=== PATIENT | male | born 1965 | race American Indian/Alaskan Native ===

== ENCOUNTER 2016-06-04 23:54 | Inpatient (IN) | payer MEDICARE, MEDICAID ==
[2016-06-04 23:54] VITALS: BMI 44.8
[2016-06-05 00:42] LABS: BASO # 0.1 K/uL (0.0-0.2); EOS # 1.5 K/uL (0.0-0.7); EOS % 14.8 % (0.0-4.0); HEMATOCRIT 39.1 % (35.0-51.0); LYMPH # 2.8 K/uL (1.0-4.3); LYMPH % 27.9 % (20.0-40.0); MEAN CELL VOLUME 93.7 fL (80.0-94.0); MEAN CORPUSCULAR HEMOGLOBIN 31.5 pg (27.0-31.0); MEAN CORPUSCULAR HGB CONC 33.6 g/dL (33.0-37.0); MEAN PLATELET VOLUME 8.2 fL (7.2-11.7); MONO # 0.9 K/uL (0.0-0.8); MONO % 8.8 % (0.0-10.0); NRBC % 0.1 % (0.0-2.0); RED CELL DISTRIBUTION WIDTH 12.9 % (11.5-14.5); WHITE BLOOD COUNT 9.9 K/uL (4.8-10.8)
[2016-06-05 00:53] LABS: CHLORIDE 98 mmol/L (98-107); POTASSIUM 3.5 mmol/L (3.6-5.2); SODIUM 139 mmol/L (132-148)
[2016-06-05 00:55] LABS: BILIRUBIN,TOTAL 0.4 mg/dL (0.2-1.3); CARBON DIOXIDE 29 mmol/L (22-30); GFR AFRICAN-AMERICAN > 60
[2016-06-05 00:56] LABS: ALKALINE PHOSPHATASE 52 U/L (38-126); ALT/SGPT 27 U/L (21-72); AST/SGOT 17 U/L (17-59); BLOOD UREA NITROGEN 15 mg/dL (9-20); CALCIUM 8.7 mg/dl (8.6-10.4); GLUCOSE,RANDOM 85 mg/dL (75-110); RBC URINE 1 /hpf (0-3); TOTAL PROTEIN 7.6 g/dL (6.3-8.3); URINE BILIRUBIN NEGATIVE (NEGATIVE); URINE BLOOD NEGATIVE (NEGATIVE); URINE COLOR Yellow (YELLOW); URINE GLUCOSE (UA) NORMAL (Normal); URINE KETONE NEGATIVE (NEGATIVE); URINE LEUKOCYTE ESTERASE NEG Leu/uL (Negative); URINE PROTEIN NEGATIVE (NEGATIVE); URINE UROBILINOGEN NORMAL mg/dL (0.2-1.0); WBC URINE 1 /hpf (0-5)
[2016-06-05 00:57] LABS: ALCOHOL SERUM < 10 mg/dl (0-10)
--- NOTE | 2016-06-05 01:02 | C.PDOC ---
History Of Present Illness 51 year old patient, with a history of hypertension and depression, presents to the ED complaining of suicidal ideation and depression for the past few days. Patient states he has a plan to jump in front of a car. Patient denies fever, shortness of breath, chest pain, vomiting, or any other physical complaints at this time. Time Seen by Provider: 06/05/16 01:00 Chief Complaint (Nursing): Psychiatric Evaluation History Per: Patient History/Exam Limitations: no limitations Onset/Duration Of Symptoms: Days (few days) Current Symptoms Are (Timing): Still Present Suicide/Self Injury Attempted (Context): Other Modifying Factor(s): None Severity: None Pain Scale Rating Of: 0 Associated Symptoms: Depression, Suicidal Plan Recent travel outside of the [place]: No Past Medical History Reviewed: Historical Data, Nursing Documentation, Vital Signs Vital Signs: Last Vital Signs Temp 97.9 F 06/05/16 00:06 Pulse 94 H 06/05/16 00:06 Resp 20 06/05/16 00:06 BP 154/73 H 06/05/16 00:06 Pulse Ox 95 06/05/16 01:03 - Medical History PMH: Bipolar Disorder, Depression, HTN - [facility] Procedures INJECT/INFUSE NEC (02/09/13) Family History: States: Unknown Family Hx - Social History Hx Alcohol Use: No Hx Substance Use: No - Immunization History Hx Tetanus Toxoid Vaccination: No Hx Influenza Vaccination: No Hx Pneumococcal Vaccination: No Review Of Systems Except As Marked, All Systems Reviewed And Found Negative. Constitutional: Negative for: Fever Cardiovascular: Negative for: Chest Pain Respiratory: Negative for: Shortness of Breath Gastrointestinal: Negative for: Vomiting Psych: Positive for: Depression, Suicidal ideation Physical Exam - Physical Exam Appears: Non-toxic, Other (mild distress) Skin: Warm, Dry Head: Atraumatic, Normacephalic Neck: Normal ROM, Supple Chest: Symmetrical Cardiovascular: Rhythm Regular Gastrointestinal/Abdominal: Soft, No Tenderness Back: Normal Inspection Extremity: Normal ROM Neurological/Psych: Oriented x3 ED Course And Treatment - Laboratory Results Result Diagrams: 06/05/16 00:37 06/05/16 00:37 O2 Sat by Pulse Oximetry: 95 Progress Note: Plan: -Labs. -Reassess and disposition Disposition Discussed With : Lori Bynum Doctor Will See Patient In The: Hospital Counseled Patient/Family Regarding: Diagnosis - Disposition Disposition: HOSPITALIZED Disposition Time: 03:19 Condition: STABLE - POA Present On Arrival: None - Clinical Impression Clinical Impression: Major depressive disorder, recurrent - Scribe Statement The provider has reviewed the documentation as recorded by the Scribe Alivia Live Provider Attestation: All medical record entries made by the Scribe were at my direction and personally dictated by me. I have reviewed the chart and agree that the record accurately reflects my personal performance of the history, physical exam, medical decision making, and the department course for this patient. I have also personally directed, reviewed, and agree with the discharge instructions and disposition.
[2016-06-05 04:04] VITALS: O2SAT 96
--- NOTE | 2016-06-05 11:18 | PCM.PSYCH ---
Initial Psychiatric Evaluation - Initial Psychiatric Evaluation Type of Admission: Voluntary Legal Status: Capacity Chief Complaint (in patient's own words): I was feeling very irritable and agitated History of Present Illness and Precipitating Events: Patient is a 51 years old HM, who is currently unemployed and homeless, with a long history of bipolar disorder, and alcohol and cocaine dependence came to the ED with depressed and agitated mood and suicidal ideation with plan to jump in traffic. As per the patient he stopped taking medications for more than 1 month ago, after the last discharge from hospital. As per the patient he became increasingly depressed and irritable. He started having racing thoughts and flight of ideas, and developed suicidal ideation, so came to the hospital to get help. Patient reports of depressed, irritable and agitated mood, reports poor sleep and poor appetite. Pt also reports at times racing of thoughts, and flight of ideas. He also reports visual hallucinations and at times persecutory delusions. However he denies any auditory hallucinations. He denies any drinking or any substance abuse. Current Medications: Active Medications Generic Name Dose Route Start Last Admin Trade Name Freq PRN Reason Stop Dose Admin Apixaban 5 mg 06/05/16 10:00 Eliquis PO DAILY ESTELITA Buspirone HCl 10 mg 06/05/16 10:00 Buspar PO BID ESTELITA Citalopram Hydrobromide 20 mg 06/05/16 10:00 Celexa PO DAILY ESTELITA Hydroxyzine HCl 50 mg 06/05/16 03:55 Atarax PO Q6 PRN Anxiety Ibuprofen 400 mg 06/05/16 03:55 Motrin Tab PO Q6 PRN Pain, Mild (1-3) Influenza Virus Vaccine 45 mcg 06/07/16 10:00 Afluria IM 06/07/16 10:01 .ONCE ONE Pneumococcal Polyvalent Vaccine 0.5 ml 06/06/16 10:15 Pneumovax 23 Vaccine IM 06/06/16 10:16 .ONCE ONE Trazodone HCl 100 mg 06/05/16 03:55 Desyrel PO HS PRN Insomnia Past Psychiatric History - Past Psychiatric History Previous Treatment History: None Pertinent Medical Hx (Current Medical&Sleep Prob, Allergies): Allergies Allergy/AdvReac Type Severity Reaction Status Date / Time No Known Allergies Allergy Verified 06/05/16 00:12 Citalopram Hydrobromide [Celexa] 20 mg PO DAILY 05/05/16 busPIRone [Buspar] 10 mg PO BID 05/05/16 traZODone 150 mg PO HS PRN 05/05/16 Apixaban [Eliquis] 5 mg PO DAILY 06/02/16 Naproxen [Naprosyn Tab] 375 mg PO BID #12 tab 06/02/16 Review of Systems - Review of Systems All systems: reviewed and no additional remarkable complaints except - Psychiatric Psychiatric: Anxiety, Behavioral Changes, Irritability, Mood Swings, Paranoia, Suicidal Ideation Mental Status Examination - Personal Presentation Personal Presentation: Looks stated age - Affect Affect: Blunted - Motor Activity Motor Activity: Psychomotor Agitation - Reliability in Providing Information Reliability in Providing Information: Poor, due to alteration in thoughts, Poor , due to altered mood - Speech Speech: Disorganized - Mood Mood: Anxious - Formal Thought Process Formal Thought Process: Delusions, Paranoia, Loosening of associations - Obsessions/Compulsions Obsessions: No Compulsions: No - Cognitive Functions Orientation: Person, Place, Situation, Time Sensorium: Alert Attention/Concentration: Attentive Abstract Thinking: [place] Estimate of Intelligence: Below average Judgement: Imparied, as evidence by: Poor judgement, Imparied, as evidence by: Lack of insight into illness - Risk Risk: Suicidal, Diminished functioning - Strength & Assets Inventory Strength & Assets Inventory: Cooperative DSM 5 DX - DSM 5 DSM 5 Diagnosis: Bipolar disorder mixed severe with psychotic features - Recommended/Plan of Treatment Treatment Recommendations and Plan of Treatment: Bipolar disorder mixed severe with psychotic features CBT Psychoeducation Supportive therapy, individual therapy Celexa 20 mg PO daily Trazodone 100 mg PO Q HS Buspar 10 mg by mouth twice a day Haldol 5 mg by mouth daily at bedtime DVT Continue prescribed medications Monitor signs symptoms HTN Continue prescribed medications Monitor signs symptoms - Smoking Cessation Smoking Cessation Initiated: No
[2016-06-05 20:29] LABS: INR 1.1
[2016-06-06] MEDS ORDERED: Aluminum Hydroxide/Magnesium Hydroxide Susp (30 mL) PO PRN (01:03)
[2016-06-06] MEDS ORDERED: Pneumococcal 23-Valent Vaccine IM ONE (10:15)
[2016-06-06] MEDS ORDERED: Influenza Virus Vaccine 45 mcg/0.5 ml Syr IM ONE (12:15)
--- NOTE | 2016-06-06 15:35 | PCM.PYCHPN ---
Psychiatric Progress Note - Psychiatric Progress Note Patient seen today, length of contact: 17 min Patient Chief Complaint: I am feeling little better Problems Identified/Issues Discussed: Patient seen and evaluated, chart reviewed and discussed with the nurse. Patient reports irritability and agitation. He still reports racing of thoughts and flight of ideas and anxiety. He remained isolated and withdrawn. He reports of visual hallucinations and persecutory delusions. However he remained calm and cooperative. He is taking medication and denied any side effects. Supportive therapy and psychoeducation were given Medication Change: Yes (start Depakote) Medical Record Reviewed: Yes Mental Status Examination - Cognitive Function Orientation: Person, Place, Situation, Time Memory: Intact Attention: WNL Concentration: Poor Association: WNL Fund of Knowledge: Poor - Mood Mood: Anxious - Affect Affect: Blunted - Speech Speech: Soft - Formal Thought Process Formal Thought Process: Delusions, Loosening of associations - Suicidal Ideation Suicidal Ideation: No - Homicidal Ideation Homicidal Ideation: No Goal/Treatment Plan - Goal/Treatment Plan Need for Continued Stay: Discharge may exacerbated symptoms, Severe functional impairment Progress Toward Problem(s) and Goals/Treatment Plan: Bipolar disorder mixed severe with psychotic features CBT Psychoeducation Supportive therapy, individual therapy Celexa 20 mg PO daily Trazodone 100 mg PO Q HS Buspar 10 mg by mouth twice a day Haldol 5 mg by mouth daily at bedtime DVT Continue prescribed medications Monitor signs symptoms HTN Continue prescribed medications Monitor signs symptoms - Smoking Cessation Smoking Cessation Initiated: No
--- NOTE | 2016-06-07 15:32 | PCM.PYCHPN ---
Psychiatric Progress Note - Psychiatric Progress Note Patient seen today, length of contact: 17 min Patient Chief Complaint: I am feeling little better Problems Identified/Issues Discussed: Patient seen and evaluated, chart reviewed and discussed with the nurse. Patient reports a bit improvement in his irritability and agitation. He remained isolated and withdrawn, and remained confined to his room. He reports a bit improvement in his racing of thoughts and flight of ideas and anxiety. He reports of visual hallucinations and persecutory delusions. However he remained calm and cooperative. He is taking medication and denied any side effects. Supportive therapy and psychoeducation were given Medication Change: Yes (start Neurontin) Medical Record Reviewed: Yes Mental Status Examination - Cognitive Function Orientation: Person, Place, Situation, Time Memory: Intact Attention: WNL Concentration: Poor Association: WNL Fund of Knowledge: Poor - Mood Mood: Anxious - Affect Affect: Blunted - Speech Speech: Soft - Formal Thought Process Formal Thought Process: Delusions, Loosening of associations - Suicidal Ideation Suicidal Ideation: No - Homicidal Ideation Homicidal Ideation: No Goal/Treatment Plan - Goal/Treatment Plan Need for Continued Stay: Discharge may exacerbated symptoms, Severe functional impairment Progress Toward Problem(s) and Goals/Treatment Plan: Bipolar disorder mixed severe with psychotic features CBT Psychoeducation Supportive therapy, individual therapy Celexa 20 mg PO daily Trazodone 100 mg PO Q HS Buspar 10 mg by mouth twice a day Haldol 5 mg by mouth daily at bedtime Neurontin 300 mg by mouth twice a day DVT Continue prescribed medications Monitor signs symptoms HTN Continue prescribed medications Monitor signs symptoms - Smoking Cessation Smoking Cessation Initiated: No
--- NOTE | 2016-06-08 18:09 | PCM.PYCHPN ---
Psychiatric Progress Note - Psychiatric Progress Note Patient seen today, length of contact: 16 min Patient Chief Complaint: I am feeling little better Problems Identified/Issues Discussed: Patient seen and evaluated, chart reviewed and discussed with the nurse. As per the staff, pt is improving and remained calm and cooperative. Patient reports improvement in his mood but remained isolated, withdrawn, agitated and guarded. He reports a bit improvement in his racing of thoughts and flight of ideas and anxiety. He is taking medication and denied any side effects. Supportive therapy and psychoeducation were given Medication Change: Yes (increase Neurontin) Medical Record Reviewed: Yes Mental Status Examination - Cognitive Function Orientation: Person, Place, Situation, Time Memory: Intact Attention: WNL Concentration: Poor Association: WNL Fund of Knowledge: Poor - Mood Mood: Anxious - Affect Affect: Blunted - Speech Speech: Soft - Formal Thought Process Formal Thought Process: Delusions, Flight of ideas - Suicidal Ideation Suicidal Ideation: No - Homicidal Ideation Homicidal Ideation: No Goal/Treatment Plan - Goal/Treatment Plan Need for Continued Stay: Discharge may exacerbated symptoms, Severe functional impairment Progress Toward Problem(s) and Goals/Treatment Plan: Bipolar disorder mixed severe with psychotic features CBT Psychoeducation Supportive therapy, individual therapy Celexa 20 mg PO daily Trazodone 100 mg PO Q HS Buspar 10 mg by mouth twice a day Haldol 5 mg by mouth daily at bedtime Increase Neurontin 300 mg by mouth TID DVT Continue prescribed medications Monitor signs symptoms HTN Continue prescribed medications Monitor signs symptoms - Smoking Cessation Smoking Cessation Initiated: No
--- NOTE | 2016-06-09 14:10 | PCM.PYCHPN ---
Psychiatric Progress Note - Psychiatric Progress Note Patient seen today, length of contact: 15 minutes Patient Chief Complaint: I'm feeling much better Problems Identified/Issues Discussed: Patient seen. Chart reviewed. Case discussed with the staff. Issues related to illness and treatment were discussed with the patient. Patient reported compliant with treatment with no adverse affects. Tolerating treatment very well. Reported feeling much better. Patient was found socializing with other patients. At the time of evaluation patient was awake alert oriented 3, had no delusions, no auditory or visual hallucinations, no suicidal ideations or homicidal ideations. Medical Problems: Hypertension DVT Diagnostic Results: Reviewed DSM 5 Symptoms Update: Improving with treatment Medication Change: No Medical Record Reviewed: Yes Mental Status Examination - Cognitive Function Orientation: Person, Place, Situation, Time Memory: Intact Attention: WNL Concentration: WNL Association: WNL Fund of Knowledge: [facility] Decription of patient's judgement and insights: Fair - Mood Mood: Neutral - Affect Affect: Other (Appropriate) - Speech Speech: Soft - Formal Thought Process Formal Thought Process: No Impairment - Suicidal Ideation Suicidal Ideation: No - Homicidal Ideation Homicidal Ideation: No Goal/Treatment Plan - Goal/Treatment Plan Need for Continued Stay: Remain at risks for inpatient hospitalization, Discharge may exacerbated symptoms, Severe functional impairment Progress Toward Problem(s) and Goals/Treatment Plan: Improving with treatment Patient education Supportive therapy Continue treatment as before We will go [facility]-up care after discharge from the hospital Estimated Date of D/C: 06/13/16 - Smoking Cessation Smoking Cessation Initiated: No
--- NOTE | 2016-06-10 16:27 | PCM.PYCHPN ---
Psychiatric Progress Note - Psychiatric Progress Note Patient seen today, length of contact: 15 minutes Patient Chief Complaint: I'm feeling much better Problems Identified/Issues Discussed: Patient seen. Chart reviewed. Case discussed with the staff. Issues related to illness and treatment were discussed with the patient. Patient reported compliant with treatment with no adverse affects. Tolerating treatment very well. Reported feeling much better. Patient was found socializing with other patients. At the time of evaluation patient was awake alert oriented 3, had no delusions, no auditory or visual hallucinations, no suicidal ideations or homicidal ideations. Medical Problems: Hypertension DVT Diagnostic Results: Reviewed DSM 5 Symptoms Update: Improving with treatment Medication Change: No Medical Record Reviewed: Yes Mental Status Examination - Cognitive Function Orientation: Person, Place, Situation, Time Memory: Intact Attention: WNL Concentration: WNL Association: WNL Fund of Knowledge: [facility] Decription of patient's judgement and insights: Fair - Mood Mood: Neutral - Affect Affect: Other (Appropriate) - Speech Speech: Soft - Formal Thought Process Formal Thought Process: No Impairment Psychotic Thoughts and Behaviors: None - Suicidal Ideation Suicidal Ideation: No - Homicidal Ideation Homicidal Ideation: No Goal/Treatment Plan - Goal/Treatment Plan Need for Continued Stay: Remain at risks for inpatient hospitalization, Discharge may exacerbated symptoms, Severe functional impairment Progress Toward Problem(s) and Goals/Treatment Plan: Improving with treatment Patient education Supportive therapy Continue treatment as before We will go [facility] for follow-up care after discharge from the hospital Estimated Date of D/C: 06/13/16 - Smoking Cessation Smoking Cessation Initiated: No
--- NOTE | 2016-06-11 09:52 | PCM.PYCHDC ---
Mental Status Examination - Mental Status Examination Orientation: Person, Place, Situation, Time Memory: Intact Mood: Neutral Affect: Constricted Speech: Soft Attention: WNL Concentration: WNL Association: WNL Fund of Knowledge: WNL Formal Thought Process: No Impairment Description of patient's judgement and insight: GOOD, FAIR Psychotic Thoughts and Behaviors: DENIES ANY AVH Suicidal Ideation: No Current Homicidal Ideation?: No Discharge Summary - Discharge Note Reason for Hospitalization: Patient is a 51 years old HM, who is currently unemployed and homeless, with a long history of bipolar disorder, and alcohol and cocaine dependence came to the ED with depressed and agitated mood and suicidal ideation with plan to jump in traffic. As per the patient he stopped taking medications for more than 1 month ago, after the last discharge from hospital. As per the patient he became increasingly depressed and irritable. He started having racing thoughts and flight of ideas, and developed suicidal ideation, so came to the hospital to get help. Patient reports of depressed, irritable and agitated mood, reports poor sleep and poor appetite. Pt also reports at times racing of thoughts, and flight of ideas. He also reports visual hallucinations and at times persecutory delusions. However he denies any auditory hallucinations. He denies any drinking or any substance abuse. Consultations:: List each consultation separately and include: 1. Reason for request. 2. Findings. 3. Follow-up Summary of Hospital Course include:: 1. Description of specific treatment plan utilized for patients during their course of treatmen. 2. Summarize the time- course for resolution of acute symptoms and/or regressed behaviors. 3. Describe issues identified and worked on during hospitalization. 4. Describe medication utilized. 5. Describe medical problems identified and treated. 6. Reassessment of suicide risk Summary of Hospital Course: During the course of his stay, patient (pt) started progressively improving and he no longer remained irritable, depressed, and suicidal. His mood was improved and he started attending groups and meetings and started socializing. Patient denied any feelings of hopelessness, helplessness, and worthlessness, denied any problem with the sleep or appetite, denied suicidal ideation or homicidal ideation. Pt denied any auditory or visual hallucinations. Some changes were made in his current medications and patient was discharged on following medications. He tolerated these medications very well and denied any side effects. - Final Diagnosis (DSM 5) Condition upon Discharge: STABLE DSM 5: Bipolar disorder mixed severe with psychotic features Disposition: HOME/ ROUTINE Follow-up Treatment Plan: Education: Pt was educated and counseled about the risks and benefits of taking and not taking medications. Pt was educated and counseled about the risks of drinking and abusing drugs. Pt was educated and counseled to go to the ER or call 911 if pt develop suicidal ideation or homicidal ideation, worsening of symptoms or severe side effects of the meds. Prescriptions/Medication Reconciliation: traZODone [Desyrel] 100 mg PO HS PRN #30 tab PRN Reason: Insomnia Gabapentin [Neurontin] 300 mg PO BID #60 cap Citalopram [celEXA] 20 mg PO DAILY #30 tab - Smoking Cessation Smoking Cessation Medication prescribed: No - Antipsychotic Medications Pt discharged on 2 or more routine antipsychotic medications: No
[2016-06-11 09:55] VITALS: BP 127/79; PULSE 98; RESP 18; TEMP 98.6
== END 2016-06-11 13:05 | disposition home or self-care (01) | DRG 885 ==
LOC: C.ER 23:54 → C.5E 06-05 03:20
PROVIDERS: ADMIT Psychiatry & Neurology Psychiatry; ATTEND Psychiatry & Neurology Psychiatry
PROC: GZ3ZZZZ Medication Management (ICD-10-PCS; principal; 2016-06-05)
PROC: GZ56ZZZ Individual Psychotherapy, Supportive (ICD-10-PCS; 2016-06-05)
DX: F31.64 Bipolar disorder, current episode mixed, severe, with psychotic features (principal); R45.851 Suicidal ideations; F14.20 Cocaine dependence, uncomplicated; I82.509 Chronic embolism and thrombosis of unspecified deep veins of unspecified lower extremity; F10.20 Alcohol dependence, uncomplicated; I10 Essential (primary) hypertension; Z23 Encounter for immunization; Z87.891 Personal history of nicotine dependence; Z59.0 Homelessness; Z91.14 Patient's other noncompliance with medication regimen

== ENCOUNTER 2016-08-31 18:46 | Emergency (ER) | payer MEDICAID, MEDICARE ==
[2016-08-31 18:47] VITALS: BMI 44.8
--- NOTE | 2016-08-31 19:49 | C.PDOC ---
History Of Present Illness Patient presents to the ED with complaints of depression and suicidal ideations. Patient notes he has a plan but denies any physical complaints at this time. Time Seen by Provider: 08/31/16 19:48 Chief Complaint (Nursing): Psychiatric Evaluation History Per: Patient History/Exam Limitations: no limitations Onset/Duration Of Symptoms: Unknown Current Symptoms Are (Timing): Still Present Suicide/Self Injury Attempted (Context): None Modifying Factor(s): None Associated Symptoms: Depression, Suicidal Thoughts, Suicidal Plan Recent travel outside of the [place]: No Past Medical History Reviewed: Historical Data, Nursing Documentation, Vital Signs Vital Signs: Last Vital Signs Temp 98.0 F 09/01/16 01:34 Pulse 90 09/01/16 01:34 Resp 18 09/01/16 03:00 BP 133/86 09/01/16 01:34 Pulse Ox 99 09/01/16 01:34 - Medical History PMH: Bipolar Disorder, Depression, HTN - [facility] Procedures INDIVIDUAL PSYCHOTHERAPY, SUPPORTIVE (06/05/16) INJECT/INFUSE NEC (02/09/13) MEDICATION MANAGEMENT (06/05/16) Family History: States: Unknown Family Hx - Social History Hx Alcohol Use: No Hx Substance Use: No - Immunization History Hx Tetanus Toxoid Vaccination: No Hx Influenza Vaccination: Yes Hx Pneumococcal Vaccination: No Review Of Systems Constitutional: Negative for: Fever, Chills, Sweats Cardiovascular: Negative for: Chest Pain, Palpitations Respiratory: Negative for: Cough, Shortness of Breath Gastrointestinal: Negative for: Nausea, Vomiting, Abdominal Pain, Diarrhea Psych: Positive for: Depression, Suicidal ideation Physical Exam - Physical Exam Appears: Non-toxic, No Acute Distress Skin: Warm, Dry Head: Atraumatic Oral Mucosa: Moist Neck: Supple Chest: Symmetrical, No Deformity Cardiovascular: Rhythm Regular Respiratory: No Rales, No Rhonchi, No Stridor, No Wheezing Gastrointestinal/Abdominal: Soft, No Tenderness, No Distention, No Guarding, No Rebound Extremity: Normal ROM, No Tenderness Neurological/Psych: Oriented x3 ED Course And Treatment - Laboratory Results Result Diagrams: 08/31/16 20:07 08/31/16 20:07 ECG: Interpreted By Me, Viewed By Me ECG Rhythm: Sinus Rhythm (89), Nonspecific Changes O2 Sat by Pulse Oximetry: 95 (room air ) Pulse Ox Interpretation: Normal - Radiology CXR: Interpreted by Me, Viewed By Me CXR Interpretation: No: Infiltrates, Fracture, Pnemothorax Progress Note: Pt is medically cleared for transfer to [facility] Disposition Counseled Patient/Family Regarding: Studies Performed, Diagnosis - Disposition Disposition: Trans to Other Acute Care Hosp Disposition Time: 19:48 Condition: GOOD - Clinical Impression Clinical Impression: Depression - Scribe Statement The provider has reviewed the documentation as recorded by the Scribayaka Hilton All medical record entries made by the Omayra were at my direction and personally dictated by me. I have reviewed the chart and agree that the record accurately reflects my personal performance of the history, physical exam, medical decision making, and the department course for this patient. I have also personally directed, reviewed, and agree with the discharge instructions and disposition.
[2016-08-31 20:17] LABS: BASO # 0.1 K/uL (0.0-0.2); BASO % 1.4 % (0.0-2.0); EOS % 11.5 % (0.0-4.0); HEMATOCRIT 38.9 % (35.0-51.0); LYMPH # 2.9 K/uL (1.0-4.3); MEAN CELL VOLUME 93.6 fL (80.0-94.0); MEAN CORPUSCULAR HEMOGLOBIN 31.2 pg (27.0-31.0); MEAN CORPUSCULAR HGB CONC 33.3 g/dL (33.0-37.0); MEAN PLATELET VOLUME 9.2 fL (7.2-11.7); MONO # 1.4 K/uL (0.0-0.8); MONO % 16.1 % (0.0-10.0); RED CELL DISTRIBUTION WIDTH 13.4 % (11.5-14.5); WHITE BLOOD COUNT 8.9 K/uL (4.8-10.8)
[2016-08-31 20:18] LABS: RBC URINE 2 /hpf (0-3); URINE BACTERIA RARE (<OCC); URINE BILIRUBIN NEGATIVE (NEGATIVE); URINE BLOOD NEGATIVE (NEGATIVE); URINE COLOR Yellow (YELLOW); URINE GLUCOSE (UA) NORMAL (Normal); URINE KETONE NEGATIVE (NEGATIVE); URINE LEUKOCYTE ESTERASE NEG Leu/uL (Negative); URINE PROTEIN NEGATIVE (NEGATIVE); URINE UROBILINOGEN NORMAL mg/dL (0.2-1.0); WBC URINE 3 /hpf (0-5)
[2016-08-31 20:27] LABS: CHLORIDE 105 mmol/L (98-107)
[2016-08-31 20:28] LABS: POTASSIUM 4.1 mmol/L (3.6-5.2); SODIUM 143 mmol/L (132-148)
[2016-08-31 20:30] LABS: ALB/GLOB RATIO 1.1 (1.0-2.1); ALKALINE PHOSPHATASE 58 U/L (38-126); AST/SGOT 18 U/L (17-59); BILIRUBIN,TOTAL 0.5 mg/dL (0.2-1.3); BLOOD UREA NITROGEN 15 mg/dL (9-20); CARBON DIOXIDE 28 mmol/L (22-30); GFR AFRICAN-AMERICAN > 60; TOTAL PROTEIN 7.4 g/dL (6.3-8.3)
[2016-08-31 20:31] LABS: ALCOHOL SERUM < 10 mg/dl (0-10)
[2016-08-31 20:51] LABS: ALT/SGPT 17 U/L (21-72); CALCIUM 9.5 mg/dl (8.6-10.4); GLUCOSE,RANDOM 123 mg/dL (75-110)
[2016-08-31 22:12] VITALS: PULSE 90; RESP 18
[2016-09-01 01:40] VITALS: BP 133/86; TEMP 98
[2016-09-01 03:04] VITALS: O2SAT 95
--- NOTE | 2016-09-01 08:37 | RAD ---
PROCEDURE: CHEST RADIOGRAPH, 1 VIEW HISTORY: psych COMPARISON: None available. FINDINGS: LUNGS: Clear. PLEURA: No pneumothorax or pleural fluid seen. CARDIOVASCULAR: Normal. OSSEOUS STRUCTURES: No significant abnormalities. VISUALIZED UPPER ABDOMEN: Normal. OTHER FINDINGS: None. IMPRESSION: No active disease.
--- NOTE | 2016-09-03 14:24 | CARD ---
APPROVED REPORT EKG Measurement Heart [id number] <Conclusion> Normal sinus rhythm Normal ECG
== END 2016-09-01 03:03 | disposition short-term general hospital (02) ==
LOC: C.ER 18:46
DX: F32.9 Major depressive disorder, single episode, unspecified (principal)
CPT/HCPCS: 71010; 80053; 81001; 85025; 99285; G0480

== ENCOUNTER 2016-09-22 18:13 | Inpatient (IN) | payer MEDICARE ==
[2016-09-22 23:15] LABS: HEMOGLOBIN 12.7 g/dL (12.0-18.0); MEAN CELL VOLUME 94.3 fL (80.0-94.0); MEAN CORPUSCULAR HEMOGLOBIN 30.8 pg (27.0-31.0); MEAN CORPUSCULAR HGB CONC 32.7 g/dL (33.0-37.0); MEAN PLATELET VOLUME 8.8 fL (7.2-11.7); RBC 4.11 Mil/uL (4.40-5.90); RED CELL DISTRIBUTION WIDTH 13.9 % (11.5-14.5); WHITE BLOOD COUNT 10.3 K/uL (4.8-10.8)
[2016-09-22 23:18] LABS: BARBITURATES, UR NEGATIVE (NEGATIVE); BENZODIAZEPINES, UR NEGATIVE (NEGATIVE); OPIATES, UR NEGATIVE (NEGATIVE); PHENCYCLIDINE, UR NEGATIVE (NEGATIVE)
[2016-09-22 23:33] LABS: ALBUMIN 3.6 g/dL (3.5-5.0); ALT/SGPT 27 U/L (21-72); AST/SGOT 19 U/L (17-59); BLOOD UREA NITROGEN 14 mg/dL (9-20); CALCIUM 8.9 mg/dl (8.6-10.4); GFR AFRICAN-AMERICAN > 60; GFR NON-AFRICAN AMERICAN > 60
[2016-09-22 23:45] LABS: SQUAMOUS EPITHIAL 8 /hpf (0-5); URINE BACTERIA FEW (<OCC); URINE BILIRUBIN NEGATIVE (NEGATIVE); URINE BLOOD NEGATIVE (NEGATIVE); URINE CALCIUM OXALATE CRYSTALS FEW /hpf (<OCC); URINE CLARITY Hazy (Clear); URINE COLOR Yellow (YELLOW); URINE GLUCOSE (UA) NORMAL (Normal); URINE LEUKOCYTE ESTERASE TRACE Leu/uL (Negative); URINE NITRATE NEGATIVE (NEGATIVE); URINE PROTEIN NEGATIVE (NEGATIVE); URINE UROBILINOGEN NORMAL mg/dL (0.2-1.0)
[2016-09-23 03:10] VITALS: BMI 44.1
--- NOTE | 2016-09-23 10:22 | PCM.PSYCH ---
Initial Psychiatric Evaluation - Initial Psychiatric Evaluation Type of Admission: Voluntary Legal Status: Capacity Chief Complaint (in patient's own words): I was feeling depressed and suicidal History of Present Illness and Precipitating Events: Patient is a 51 years old AAM, who is currently unemployed and homeless, and has a history of major depressive disorder and alcohol use disorder came to the hospital with depressed mood and suicidal ideation. 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 Patient was just discharged from [facility] almost 2 weeks ago. As per the patient, soon after discharge he stopped taking his medications and relapsed on drinking. Patient remained a poor historian. He mentioned [facility] Patient states that therefore yesterday he consumed few beers 2 days age, and stopped taking medications, became depressed and suicidal, so he came to the hospital to get help. Patient reports depressed mood, feelings of hopelessness and helplessness poor sleep and poor appetite. He denies any auditory or visual hallucinations or any psychosis. He denies any withdrawal symptoms. He reports history of cocaine abuse. Past medical history Hypertension, hypercholesterolemia Current Medications: Active Medications Generic Name Dose Route Start Last Admin Trade Name Freq PRN Reason Stop Dose Admin Hydroxyzine HCl 50 mg 09/23/16 03:14 Atarax PO Q6H PRN Anxiety Ibuprofen 600 mg 09/23/16 03:12 Motrin Tab PO Q6H PRN Pain, moderate (4-7) Trazodone HCl 50 mg 09/23/16 03:13 Desyrel PO HS PRN Insomnia Past Psychiatric History - Past Psychiatric History Previous Treatment History: Inpatient Pertinent Medical Hx (Current Medical&Sleep Prob, Allergies): Allergies Allergy/AdvReac Type Severity Reaction Status Date / Time No Known Allergies Allergy Verified 09/18/16 18:02 Citalopram [celEXA] 20 mg PO DAILY #30 tab 09/06/16 Gabapentin [Neurontin] 300 mg PO TID #90 cap 09/06/16 Review of Systems - Review of Systems All systems: reviewed and no additional remarkable complaints except - Psychiatric Psychiatric: Anxiety, Irritability, Suicidal Ideation Mental Status Examination - Personal Presentation Personal Presentation: Looks stated age - Affect Affect: Constricted, Depressed - Motor Activity Motor Activity: Calm - Reliability in Providing Information Reliability in Providing Information: Good - Speech Speech: Organized - Mood Mood: Depressed, Anxious - Formal Thought Process Formal Thought Process: Hallucinations - Hallucinations/Delusions Hallucinations: Visual, Auditory - Obsessions/Compulsions Obsessions: No Compulsions: No - Cognitive Functions Orientation: Person, Place, Situation, Time Sensorium: Alert Attention/Concentration: Attentive Abstract Thinking: [place] Estimate of Intelligence: Below average Judgement: Imparied, as evidence by: Poor judgement, Imparied, as evidence by: Lack of insight into illness - Risk Risk: Suicidal, Diminished functioning - Strength & Assets Inventory Strength & Assets Inventory: Cooperative - Limitations Limitations: Living alone DSM 5 DX - DSM 5 DSM 5 Diagnosis: Bipolar disorder mixed severe with psychotic features Alcohol use disorder moderate Cocaine use disorder moderate - Recommended/Plan of Treatment Treatment Recommendations and Plan of Treatment: Bipolar disorder mixed severe with psychotic features CBT Psychoeducation Supportive therapy, group therapy, individual therapy Celexa 20 mg by mouth daily Neurontin 100 mg by mouth 3 times a day Trazodone 50 mg by mouth daily at bedtime Alcohol use disorder moderate CBT Psychoeducation Supportive therapy, individual therapy Use [place] for abstinence Cocaine use disorder moderate CBT Psychoeducation Supportive therapy, individual therapy Use [place] for abstinence Hypertension monitor signs and symptoms Hypercholesterolemia monitor signs and symptoms - Smoking Cessation Smoking Cessation Initiated: No
--- NOTE | 2016-09-24 16:40 | PCM.PYCHPN ---
Psychiatric Progress Note - Psychiatric Progress Note Patient seen today, length of contact: 15 min Patient Chief Complaint: I was feeling depressed and suicidal Problems Identified/Issues Discussed: Patient seen and evaluated, chart reviewed and discussed with the nurse. As per the staff, patient still appears isolated, depressed and withdrawn. Patient still reports depressed mood but denies any feelings of hopelessness or helplessness. He denies any withdrawal symptoms. He reports improvement in the hallucinations. He needs some more time for stabilization. He is compliant with her medications and denies any side effects. Supportive therapy and psychoeducation were given. Medication Change: No Medical Record Reviewed: Yes Mental Status Examination - Cognitive Function Orientation: Person, Place, Situation, Time Memory: Intact Attention: WNL Concentration: Poor Association: WNL Fund of Knowledge: Poor - Mood Mood: Depressed, Anxious - Affect Affect: Constricted, Depressed - Speech Speech: Soft - Formal Thought Process Formal Thought Process: Hallucinations - Suicidal Ideation Suicidal Ideation: No - Homicidal Ideation Homicidal Ideation: No Goal/Treatment Plan - Goal/Treatment Plan Need for Continued Stay: Discharge may exacerbated symptoms, Severe functional impairment Progress Toward Problem(s) and Goals/Treatment Plan: Bipolar disorder mixed severe with psychotic features CBT Psychoeducation Supportive therapy, group therapy, individual therapy Celexa 20 mg by mouth daily Neurontin 100 mg by mouth 3 times a day Trazodone 50 mg by mouth daily at bedtime Alcohol use disorder moderate CBT Psychoeducation Supportive therapy, individual therapy Use [place] for abstinence Cocaine use disorder moderate CBT Psychoeducation Supportive therapy, individual therapy Use [place] for abstinence Hypertension monitor signs and symptoms Hypercholesterolemia monitor signs and symptoms - Smoking Cessation Smoking Cessation Initiated: No
--- NOTE | 2016-09-25 12:40 | PCM.PYCHPN ---
Psychiatric Progress Note - Psychiatric Progress Note Patient seen today, length of contact: 15 min Patient Chief Complaint: I was feeling little better Problems Identified/Issues Discussed: Pt is seen, chart reviewed, and case discussed with staff. Patient states that he feels better today. The patient reports improvement in his mood and reports somewhat improvement in his depressive symptoms, but he remained isolated and continued to pace back and forth in the hallways. The pt is compliant with medications and reports no side-effects. Symptoms are improving but needs more time to stabilize. After care discussed, support and psychoeducation given. Medication Change: No Medical Record Reviewed: Yes Mental Status Examination - Cognitive Function Orientation: Person, Place, Situation, Time Memory: Intact Attention: WNL Concentration: Poor Association: WNL Fund of Knowledge: Poor - Mood Mood: Depressed, Anxious - Affect Affect: Constricted, Depressed - Speech Speech: Soft - Formal Thought Process Formal Thought Process: No Impairment - Suicidal Ideation Suicidal Ideation: No - Homicidal Ideation Homicidal Ideation: No Goal/Treatment Plan - Goal/Treatment Plan Need for Continued Stay: Discharge may exacerbated symptoms, Severe functional impairment Progress Toward Problem(s) and Goals/Treatment Plan: Bipolar disorder mixed severe with psychotic features CBT Psychoeducation Supportive therapy, group therapy, individual therapy Celexa 20 mg by mouth daily Neurontin 100 mg by mouth 3 times a day Trazodone 50 mg by mouth daily at bedtime Alcohol use disorder moderate CBT Psychoeducation Supportive therapy, individual therapy Use [place] for abstinence Cocaine use disorder moderate CBT Psychoeducation Supportive therapy, individual therapy Use [place] for abstinence Hypertension monitor signs and symptoms Hypercholesterolemia monitor signs and symptoms - Smoking Cessation Smoking Cessation Initiated: No
--- NOTE | 2016-09-26 13:58 | PCM.PYCHPN ---
Psychiatric Progress Note - Psychiatric Progress Note Patient seen today, length of contact: 15 min Patient Chief Complaint: I was feeling depressed and suicidal Problems Identified/Issues Discussed: Pt is seen, chart reviewed, and case discussed with staff. Patient states that he feels better today. The patient reports improvement in his mood and reports improvement in his depressive symptoms, but he remained isolated and continued to pace back and forth in the hallways. The pt is compliant with medications and reports no side-effects. Symptoms are improving but needs more time to stabilize. After care discussed, support and psychoeducation given. Medication Change: No Medical Record Reviewed: Yes Mental Status Examination - Cognitive Function Orientation: Person, Place, Situation, Time Memory: Intact Attention: WNL Concentration: Poor Association: WNL Fund of Knowledge: Poor - Mood Mood: Anxious - Affect Affect: Constricted - Speech Speech: Soft - Formal Thought Process Formal Thought Process: No Impairment - Suicidal Ideation Suicidal Ideation: No - Homicidal Ideation Homicidal Ideation: No Goal/Treatment Plan - Goal/Treatment Plan Need for Continued Stay: Discharge may exacerbated symptoms, Severe functional impairment Progress Toward Problem(s) and Goals/Treatment Plan: Bipolar disorder mixed severe with psychotic features CBT Psychoeducation Supportive therapy, group therapy, individual therapy Celexa 20 mg by mouth daily Neurontin 100 mg by mouth 3 times a day Trazodone 50 mg by mouth daily at bedtime Alcohol use disorder moderate CBT Psychoeducation Supportive therapy, individual therapy Use [place] for abstinence Cocaine use disorder moderate CBT Psychoeducation Supportive therapy, individual therapy Use [place] for abstinence Hypertension monitor signs and symptoms Hypercholesterolemia monitor signs and symptoms - Smoking Cessation Smoking Cessation Initiated: No
--- NOTE | 2016-09-27 14:59 | PCM.PYCHPN ---
Psychiatric Progress Note - Psychiatric Progress Note Patient seen today, length of contact: 15 min Patient Chief Complaint: I was feeling much better Problems Identified/Issues Discussed: Pt is seen, chart reviewed, and case discussed with staff. Today pt states improvement in his mood and psychosis. He started socializing, but he remained isolated and continued to pace back and forth in the hallways. The pt is compliant with medications and reports no side-effects. Symptoms are improving but needs more time to stabilize. After care discussed, support and psychoeducation given. Medication Change: No Medical Record Reviewed: Yes Mental Status Examination - Cognitive Function Orientation: Person, Place, Situation, Time Memory: Intact Attention: WNL Concentration: Poor Association: WNL Fund of Knowledge: Poor - Mood Mood: Depressed, Anxious - Affect Affect: Constricted, Depressed - Speech Speech: Soft - Formal Thought Process Formal Thought Process: No Impairment - Suicidal Ideation Suicidal Ideation: No - Homicidal Ideation Homicidal Ideation: No Goal/Treatment Plan - Goal/Treatment Plan Need for Continued Stay: Discharge may exacerbated symptoms, Severe functional impairment Progress Toward Problem(s) and Goals/Treatment Plan: Bipolar disorder mixed severe with psychotic features CBT Psychoeducation Supportive therapy, group therapy, individual therapy Celexa 20 mg by mouth daily Neurontin 100 mg by mouth 3 times a day Trazodone 50 mg by mouth daily at bedtime Alcohol use disorder moderate CBT Psychoeducation Supportive therapy, individual therapy Use [place] for abstinence Cocaine use disorder moderate CBT Psychoeducation Supportive therapy, individual therapy Use [place] for abstinence Hypertension monitor signs and symptoms Hypercholesterolemia monitor signs and symptoms
[2016-09-28 07:32] VITALS: BP 155/69; PULSE 89; RESP 19; TEMP 98.1
--- NOTE | 2016-09-28 11:17 | PCM.PYCHDC ---
Mental Status Examination - Mental Status Examination Orientation: Person, Place, Situation, Time Memory: Intact Mood: Neutral Affect: Constricted Speech: Soft Attention: WNL Concentration: WNL Association: WNL Fund of Knowledge: WNL Formal Thought Process: No Impairment Description of patient's judgement and insight: GOOD, FAIR Psychotic Thoughts and Behaviors: denies any AVH Suicidal Ideation: No Current Homicidal Ideation?: No Discharge Summary - Discharge Note Reason for Hospitalization: Patient is a 51 years old AAM, who is currently unemployed and homeless, and has a history of major depressive disorder and alcohol use disorder came to the hospital with depressed mood and suicidal ideation. 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 Patient was just discharged from [facility] almost 2 weeks ago. As per the patient, soon after discharge he stopped taking his medications and relapsed on drinking. Patient remained a poor historian. He mentioned that [facility]. Patient states that therefore yesterday he consumed few beers 2 days age, and stopped taking medications, became depressed and suicidal, so he came to the hospital to get help. Patient reports depressed mood, feelings of hopelessness and helplessness poor sleep and poor appetite. He denies any auditory or visual hallucinations or any psychosis. He denies any withdrawal symptoms. He reports history of cocaine abuse. Consultations:: List each consultation separately and include: 1. Reason for request. 2. Findings. 3. Follow-up Summary of Hospital Course include:: 1. Description of specific treatment plan utilized for patients during their course of treatmen. 2. Summarize the time- course for resolution of acute symptoms and/or regressed behaviors. 3. Describe issues identified and worked on during hospitalization. 4. Describe medication utilized. 5. Describe medical problems identified and treated. 6. Reassessment of suicide risk Summary of Hospital Course: During the course of his stay, patient (pt) started progressively improving and he no longer remained anxious and irritable. He started attending groups and meetings and started socializing. He denied any feelings of hopelessness, helplessness, and worthlessness, denied any problem with the sleep or appetite, denied suicidal ideation or homicidal ideation. Pt denied any auditory or visual hallucinations. Patient remained calm and cooperative and remained compliant with the medications. Patient tolerated the detox medications very well and denied any side effects. - Final Diagnosis (DSM 5) Condition upon Discharge: GOOD DSM 5: Bipolar disorder mixed severe with psychotic features Alcohol use disorder moderate Cocaine use disorder moderate Disposition: HOME/ ROUTINE Follow-up Treatment Plan: Education: Pt was educated and counseled about the risks and benefits of taking and not taking medications. Pt was educated and counseled about the risks of drinking and abusing drugs. Pt was educated and counseled to go to the ER or call 911 if pt develop suicidal ideation or homicidal ideation, worsening of symptoms or severe side effects of the meds. Prescriptions/Medication Reconciliation: Citalopram [celEXA] 20 mg PO DAILY #30 tab Gabapentin [Neurontin] 300 mg PO TID #90 cap traZODone [Desyrel] 50 mg PO HS PRN #30 tab PRN Reason: Insomnia - Smoking Cessation Smoking Cessation Medication prescribed: No - Antipsychotic Medications Pt discharged on 2 or more routine antipsychotic medications: No
== END 2016-09-28 14:45 | disposition home or self-care (01) | DRG 885 ==
LOC: C.ER 18:13 → C.5E 22:15
PROVIDERS: ADMIT Psychiatry & Neurology Psychiatry; ATTEND Psychiatry & Neurology Psychiatry
PROC: GZHZZZZ Group Psychotherapy (ICD-10-PCS; principal; 2016-09-22)
PROC: GZ58ZZZ Individual Psychotherapy, Cognitive-Behavioral (ICD-10-PCS; 2016-09-22)
PROC: GZ56ZZZ Individual Psychotherapy, Supportive (ICD-10-PCS; 2016-09-22)
PROC: HZ52ZZZ Individual Psychotherapy for Substance Abuse Treatment, Cognitive-Behavioral (ICD-10-PCS; 2016-09-22)
PROC: HZ59ZZZ Individual Psychotherapy for Substance Abuse Treatment, Supportive (ICD-10-PCS; 2016-09-22)
PROC: HZ56ZZZ Individual Psychotherapy for Substance Abuse Treatment, Psychoeducation (ICD-10-PCS; 2016-09-22)
DX: F31.64 Bipolar disorder, current episode mixed, severe, with psychotic features (principal); I10 Essential (primary) hypertension; E78.00 Pure hypercholesterolemia, unspecified; F14.90 Cocaine use, unspecified, uncomplicated; F10.10 Alcohol abuse, uncomplicated